=== PATIENT | male | born 1990 | race Hispanic/Latino ===

== ENCOUNTER → 2020-01-20 | Outpatient (CLI) | payer OTHER | END | disposition home or self-care (01) | LOC: WHH 13:00 | PROVIDERS: ATTEND Specialist | DX: S61.207A Unspecified open wound of left little finger without damage to nail, initial encounter (principal); S67.22XA Crushing injury of left hand, initial encounter; S67.21XA Crushing injury of right hand, initial encounter; X58.XXXA Exposure to other specified factors, initial encounter; Y93.89 Activity, other specified; Y92.89 Other specified places as the place of occurrence of the external cause; Y99.8 Other external cause status | CPT/HCPCS: 87070; 99205 ==

== ENCOUNTER → 2020-01-27 | Outpatient (CLI) | payer OTHER | END | disposition home or self-care (01) | LOC: WHH 13:00 | PROVIDERS: ATTEND Specialist | DX: S61.207D Unspecified open wound of left little finger without damage to nail, subsequent encounter (principal); S67.22XD Crushing injury of left hand, subsequent encounter; X58.XXXD Exposure to other specified factors, subsequent encounter | CPT/HCPCS: 99214 ==